=== PATIENT | female | born 1955 | race African-American/Black ===

== ENCOUNTER 2022-03-07 19:38 | Inpatient (IN) | payer MEDICARE, MEDICAID ==
[~2022-03-07 19:38] MED LIST: Iopamidol 370 76% 100 ML VIAL ONE; Iopamidol 370 76% 50 ML VIAL FS ONE
[2022-03-07 20:09] LABS: #Eosinphils 0.2 thou/uL (0.0-0.7); #Lymphocytes 3.1 thou/uL (1.20-3.40); #Monocytes 0.8 thou/uL (0.11-0.59); #Neutrophils 9.2 thou/uL (1.40-6.50); %Basophils 0.1 % (0.0-1.0); %Eosinophils 1.5 % (0.0-10.0); %Lymphocytes 23.1 % (21.0-51.0); %Monocytes 6.3 % (0.0-10.0); Mean Corpuscular HGB CONC 31.5 g/dL (32.0-36.0); Mean Corpuscular Hemoglobin 24.5 pg (27.0-31.0); Mean Platelet Volume 8.5 fL (7.4-10.4); Platelet Count 260 10x3/uL (130-400); RBC Distribution Width 16.3 % (11.5-14.5); Red Blood Cell (RBC) Count 4.89 mill/uL (4.20-5.40); White Blood Cell (WBC) Count 13.3 10x3/uL (4.8-10.8)
[2022-03-07 20:12] LABS: PTT 32.9 sec (22.9-36.1); Prothrombin Time 13.7 sec (12.0-14.7)
[2022-03-07 20:24] LABS: ALT (SGPT) 8 U/L (8-55); AST (SGOT) 25 U/L (5-34); Albumin 3.4 g/dL (3.4-4.8); Alkaline Phosphatase 110 U/L (40-110); Anion Gap 13 mmol/L (10-20); BUN (Urea Nitrogen) 12 mg/dL (9.8-20.1); Bilirubin, Total 0.3 mg/dL (0.2-1.2); Calc. Creatinine Clearance 0 mL/min (70-130); Calcium 8.9 mg/dL (7.8-10.44); Carbon Dioxide 28 mmol/L (23-31); Chloride 102 mmol/L (98-107); Estimated GFR 61; Globulin 3.2 g/dL (2.4-3.5); Glucose 287 mg/dL (80-115); Protein, Total 6.6 g/dL (5.8-8.1); Sodium 139 mmol/L (136-145)
[2022-03-07] MEDS ORDERED: Lidocaine 1% (PF) 30 ML VIAL ONE (20:28)
[2022-03-07] MEDS ORDERED: Clopidogrel Bisulfate 300 MG TAB ONE ×3 (20:39→20:41)
[2022-03-07 20:49] LABS: CKMB 42.5 ng/mL (0-6.6)
[2022-03-07] MEDS ORDERED: Heparin 10,000 UNITS/ 10 ML VIAL ONE ×2 (20:58)
[2022-03-07] MEDS ORDERED: Albuterol Sulfate HFA (OR ONLY) ONE (21:30)
[2022-03-07] MEDS ORDERED: Aggrastat 12.5 MG/250 ML 250 ML ONE (21:30)
[2022-03-07] MEDS ORDERED: Aggrastat 12.5 MG/250 ML 250 ML IVPB SCH ×2 (21:57→22:00)
[2022-03-07] MEDS ORDERED: Nitroglycerin 0.4 MG TAB (25 Tab Bottle) SL PRN (21:57)
[2022-03-07] MEDS ORDERED: Sodium Chloride 0.9% 1,000 ML IV SCH (21:57)
[2022-03-07] MEDS: Morphine 4 MG/ML VIAL SLOW IVP PRN (22:30)
[2022-03-07] MEDS ORDERED: Carvedilol 6.25 MG TAB PO SCH (22:30)
[2022-03-07 22:46] VITALS: BMI 44.7
[2022-03-08] MEDS: Nitroglycerin 50 MG/250 ML BOT 250 ML IVPB SCH ×2 (00:27→04:34)
[2022-03-08 01:43] LABS: Troponin I 40.655 ng/mL (< 0.028)
[2022-03-08] MEDS: Morphine 4 MG/ML VIAL SLOW IVP PRN ×2 (02:31→14:04)
[2022-03-08 03:54] LABS: ALT (SGPT) 9 U/L (8-55); AST (SGOT) 62 U/L (5-34); Albumin 2.9 g/dL (3.4-4.8); Alkaline Phosphatase 99 U/L (40-110); Anion Gap 11 mmol/L (10-20); BUN (Urea Nitrogen) 11 mg/dL (9.8-20.1); Bilirubin, Total 0.5 mg/dL (0.2-1.2); Calc. Creatinine Clearance 132 mL/min (70-130); Calcium 8.1 mg/dL (7.8-10.44); Carbon Dioxide 24 mmol/L (23-31); Chloride 106 mmol/L (98-107); Cholesterol 145 mg/dl (< 200 Desired); Estimated GFR 88; Globulin 2.6 g/dL (2.4-3.5); Glucose 253 mg/dL (80-115); HDL Cholesterol 29 mg/dL (>60 Neg Risk); LDL Cholesterol, Calculated 96 mg/dL; Potassium 3.6 mmol/L (3.5-5.1); Protein, Total 5.5 g/dL (5.8-8.1); Sodium 137 mmol/L (136-145); Triglycerides 101 mg/dL (Less than 150)
[2022-03-08] MEDS ORDERED: Dextrose 5% in Water 1,000 ML IV PRN (04:17)
[2022-03-08] MEDS ORDERED: HumaLOG 300 UNITS/3 ML VIAL SC PRN (04:17)
[2022-03-08] MEDS ORDERED: Dextrose 50% Abboject 50 ML SYRINGE SLOW IVP PRN (04:17)
[2022-03-08 06:23] LABS: #Eosinphils 0.2 thou/uL (0.0-0.7); #Lymphocytes 3.2 thou/uL (1.20-3.40); #Monocytes 0.9 thou/uL (0.11-0.59); #Neutrophils 7.4 thou/uL (1.40-6.50); %Basophils 0.4 % (0.0-1.0); %Eosinophils 1.7 % (0.0-10.0); %Lymphocytes 27.6 % (21.0-51.0); %Monocytes 7.4 % (0.0-10.0); %Neutrophils 62.9 % (42.0-75.0); Hemoglobin 10.2 g/dL (12.0-16.0); Mean Corpuscular HGB CONC 31.4 g/dL (32.0-36.0); Mean Corpuscular Hemoglobin 24.7 pg (27.0-31.0); Mean Corpuscular Volume 78.9 fl (78.0-98.0); Platelet Count 247 10x3/uL (130-400); RBC Distribution Width 16.4 % (11.5-14.5); Red Blood Cell (RBC) Count 4.11 mill/uL (4.20-5.40); White Blood Cell (WBC) Count 11.7 10x3/uL (4.8-10.8)
[2022-03-08] MEDS: Ondansetron PF 4 MG/2 ML Vial IVP PRN ×2 (06:50→14:03)
[2022-03-08 07:23] LABS: Critical Call Chem Troponin I RESULT DECREASING; Troponin I 33.246 ng/mL (< 0.028)
[2022-03-08] MEDS: Carvedilol 6.25 MG TAB PO SCH ×2 (08:15→16:35)
[2022-03-08] MEDS: Aspirin Chewable 81 MG TAB PO SCH (09:39)
[2022-03-08] MEDS: Clopidogrel Bisulfate 75 MG TAB PO SCH (09:39)
[2022-03-08] MEDS ORDERED: Amlodipine 5 MG TAB PO SCH (10:45)
[2022-03-08] MEDS: HumaLOG 300 UNITS/3 ML VIAL SC PRN ×2 (11:39→16:35)
[2022-03-08 12:20] LABS: Critical Call Chem Troponin I RESULT DECREASING; Troponin I 25.176 ng/mL (< 0.028)
[2022-03-08] MEDS: Gabapentin 300 MG CAP PO SCH ×2 (14:03→21:43)
[2022-03-08 14:24] LABS: Bilirubin Negative (Negative); Blood, Urine 3+ (Negative); Clarity Clear (Clear); Glucose, Urine (Dipstick) 100 mg/dL (Negative); Ketone, Urine Negative (Negative); Leukocyte Negative Leu/uL (Negative); Nitrite 2+ (Negative); Protein, Urine (Dipstick) 70 mg/dL (Neg-Trace); Urobilinogen Normal mg/dL (Less than 2)
[2022-03-08 14:27] LABS: Specific Gravity, Urine Greater than 1.060 (1.002-1.036)
[2022-03-08] MEDS ORDERED: Potassium Chloride 20 MEQ TAB PO SCH (17:00)
[2022-03-08] MEDS ORDERED: Furosemide 20 MG/2 ML VIAL SLOW IVP SCH (17:00)
[2022-03-08] MEDS: Insulin Glargine 30 UNITS/0.3 ML VIAL SC SCH (21:44)
[2022-03-08] MEDS: Atorvastatin Calcium 40 MG TAB PO SCH (21:44)
[2022-03-09] MEDS ORDERED: Phenazopyridine HCl 100 MG TAB PO SCH (04:00)
[2022-03-09 04:45] LABS: #Eosinphils 0.2 thou/uL (0.0-0.7); #Lymphocytes 3.3 thou/uL (1.20-3.40); #Monocytes 0.9 thou/uL (0.11-0.59); #Neutrophils 7.2 thou/uL (1.40-6.50); %Basophils 0.1 % (0.0-1.0); %Eosinophils 1.7 % (0.0-10.0); %Lymphocytes 28.3 % (21.0-51.0); %Monocytes 7.4 % (0.0-10.0); %Neutrophils 62.5 % (42.0-75.0); Hemoglobin 10.3 g/dL (12.0-16.0); Mean Corpuscular HGB CONC 31.7 g/dL (32.0-36.0); Mean Corpuscular Hemoglobin 24.8 pg (27.0-31.0); Mean Corpuscular Volume 78.3 fl (78.0-98.0); Mean Platelet Volume 8.4 fL (7.4-10.4); Platelet Count 238 10x3/uL (130-400); RBC Distribution Width 16.2 % (11.5-14.5); Red Blood Cell (RBC) Count 4.15 mill/uL (4.20-5.40); White Blood Cell (WBC) Count 11.5 10x3/uL (4.8-10.8)
[2022-03-09] MEDS: cefTRIAXone\\ROCEPHIN 1 GM in Sodium Chloride 0.9% 100 ML IVPB SCH (05:13)
[2022-03-09 05:15] LABS: Anion Gap 12 mmol/L (10-20); BUN (Urea Nitrogen) 10 mg/dL (9.8-20.1); Calc. Creatinine Clearance 123 mL/min (70-130); Calcium 8.5 mg/dL (7.8-10.44); Carbon Dioxide 25 mmol/L (23-31); Chloride 104 mmol/L (98-107); Estimated GFR 81; Glucose 211 mg/dL (80-115); Sodium 137 mmol/L (136-145)
[2022-03-09] MEDS: HumaLOG 300 UNITS/3 ML VIAL SC PRN ×3 (06:11→17:55)
[2022-03-09] MEDS ORDERED: Amlodipine 5 MG TAB PO SCH (09:00)
[2022-03-09] MEDS: Phenazopyridine HCl 100 MG TAB PO SCH ×3 (09:58→17:54)
[2022-03-09] MEDS: Insulin Glargine 30 UNITS/0.3 ML VIAL SC SCH ×2 (09:58→20:42)
[2022-03-09] MEDS: Aspirin Chewable 81 MG TAB PO SCH (09:58)
[2022-03-09] MEDS: Gabapentin 300 MG CAP PO SCH ×3 (09:59→20:41)
[2022-03-09] MEDS: Clopidogrel Bisulfate 75 MG TAB PO SCH (09:59)
[2022-03-09] MEDS: Carvedilol 6.25 MG TAB PO SCH ×2 (09:59→16:02)
[2022-03-09] MEDS ORDERED: Furosemide 20 MG TAB PO SCH (11:00)
[2022-03-09] MEDS ORDERED: Docusate 100 MG CAP PO PRN (20:39)
[2022-03-09] MEDS: Morphine 4 MG/ML VIAL SLOW IVP PRN (20:40)
[2022-03-09] MEDS: Atorvastatin Calcium 40 MG TAB PO SCH (20:41)
[2022-03-10 04:48] LABS: #Eosinphils 0.2 thou/uL (0.0-0.7); #Lymphocytes 2.7 thou/uL (1.20-3.40); #Monocytes 0.7 thou/uL (0.11-0.59); #Neutrophils 6.8 thou/uL (1.40-6.50); %Eosinophils 1.6 % (0.0-10.0); %Lymphocytes 26.2 % (21.0-51.0); %Monocytes 6.8 % (0.0-10.0); %Neutrophils 65.4 % (42.0-75.0); Hemoglobin 10.4 g/dL (12.0-16.0); Mean Corpuscular HGB CONC 31.2 g/dL (32.0-36.0); Mean Corpuscular Hemoglobin 24.6 pg (27.0-31.0); Mean Platelet Volume 8.8 fL (7.4-10.4); Platelet Count 225 10x3/uL (130-400); RBC Distribution Width 16.4 % (11.5-14.5); Red Blood Cell (RBC) Count 4.22 mill/uL (4.20-5.40); White Blood Cell (WBC) Count 10.3 10x3/uL (4.8-10.8)
[2022-03-10] MEDS: cefTRIAXone\\ROCEPHIN 1 GM in Sodium Chloride 0.9% 100 ML IVPB SCH (05:04)
[2022-03-10 05:07] LABS: Anion Gap 9 mmol/L (10-20); BUN (Urea Nitrogen) 10 mg/dL (9.8-20.1); Calc. Creatinine Clearance 120 mL/min (70-130); Calcium 8.5 mg/dL (7.8-10.44); Carbon Dioxide 26 mmol/L (23-31); Chloride 104 mmol/L (98-107); Estimated GFR 78; Glucose 164 mg/dL (80-115); Iron 21 ug/dL (50-170); Iron Binding Capacity, Total 226 mcg/dL (265-497); Potassium 3.7 mmol/L (3.5-5.1); Sodium 135 mmol/L (136-145)
[2022-03-10 05:17] LABS: Iron 23 ug/dL (50-170); Iron Binding Capacity, Total 215 mcg/dL (265-497)
[2022-03-10] MEDS: HumaLOG 300 UNITS/3 ML VIAL SC PRN ×3 (06:38→17:13)
[2022-03-10] MEDS: Carvedilol 6.25 MG TAB PO SCH ×2 (09:00→16:03)
[2022-03-10] MEDS ORDERED: FLU VACC QS2022-23(65YR UP)/PF 240 MCG/0.7 ML SYRINGE IM ONE (09:00)
[2022-03-10] MEDS: Gabapentin 300 MG CAP PO SCH ×3 (09:01→20:16)
[2022-03-10] MEDS: Enoxaparin Sodium 40 MG/0.4 ML SYRINGE SC SCH (09:02)
[2022-03-10] MEDS: Clopidogrel Bisulfate 75 MG TAB PO SCH (09:02)
[2022-03-10] MEDS: Aspirin 81 mg Enteric Coated Tablet PO SCH (09:02)
[2022-03-10] MEDS: Insulin Glargine 30 UNITS/0.3 ML VIAL SC SCH ×2 (09:03→20:17)
[2022-03-10] MEDS: Furosemide 20 MG TAB PO SCH (09:03)
[2022-03-10] MEDS: Phenazopyridine HCl 100 MG TAB PO SCH ×3 (09:03→17:09)
[2022-03-10] MEDS: Morphine 4 MG/ML VIAL SLOW IVP PRN (20:09)
[2022-03-10] MEDS: Atorvastatin Calcium 40 MG TAB PO SCH (20:16)
[2022-03-11 05:12] LABS: Anion Gap 12 mmol/L (10-20); BUN (Urea Nitrogen) 11 mg/dL (9.8-20.1); Calc. Creatinine Clearance 133 mL/min (70-130); Calcium 8.5 mg/dL (7.8-10.44); Carbon Dioxide 24 mmol/L (23-31); Chloride 104 mmol/L (98-107); Estimated GFR 90; Glucose 125 mg/dL (80-115); Potassium 3.8 mmol/L (3.5-5.1); Sodium 136 mmol/L (136-145)
[2022-03-11] MEDS: cefTRIAXone\\ROCEPHIN 1 GM in Sodium Chloride 0.9% 100 ML IVPB SCH (05:45)
[2022-03-11] MEDS: Phenazopyridine HCl 100 MG TAB PO SCH ×2 (09:21→13:37)
[2022-03-11] MEDS: Aspirin 81 mg Enteric Coated Tablet PO SCH (09:21)
[2022-03-11] MEDS: Enoxaparin Sodium 40 MG/0.4 ML SYRINGE SC SCH (09:21)
[2022-03-11] MEDS: Carvedilol 6.25 MG TAB PO SCH (09:21)
[2022-03-11] MEDS: Gabapentin 300 MG CAP PO SCH ×2 (09:21→15:14)
[2022-03-11] MEDS: Insulin Glargine 30 UNITS/0.3 ML VIAL SC SCH (09:21)
[2022-03-11] MEDS: Furosemide 20 MG TAB PO SCH (09:21)
[2022-03-11] MEDS: Clopidogrel Bisulfate 75 MG TAB PO SCH (09:22)
[2022-03-11 09:59] VITALS: TEMP 97.7
[2022-03-11] MEDS: HumaLOG 300 UNITS/3 ML VIAL SC PRN (13:35)
[2022-03-11 14:55] VITALS: BP 166/74
== END 2022-03-11 15:43 | disposition home or self-care (01) | DRG 247 ==
LOC: ERS 19:38 → CCL 20:22 → CCU 21:51 → 2NO 03-08 19:40
PROVIDERS: ADMIT Internal Medicine; ATTEND Internal Medicine Cardiovascular Disease
PROC: 027034Z Dilation of Coronary Artery, One Artery with Drug-eluting Intraluminal Device, Percutaneous Approach (ICD-10-PCS; principal; 2022-03-07)
PROC: 4A023N7 Measurement of Cardiac Sampling and Pressure, Left Heart, Percutaneous Approach (ICD-10-PCS; 2022-03-07)
PROC: B2111ZZ Fluoroscopy of Multiple Coronary Arteries using Low Osmolar Contrast (ICD-10-PCS; 2022-03-07)
PROC: B2151ZZ Fluoroscopy of Left Heart using Low Osmolar Contrast (ICD-10-PCS; 2022-03-07)
DX: I21.09 ST elevation (STEMI) myocardial infarction involving other coronary artery of anterior wall (principal); I69.351 Hemiplegia and hemiparesis following cerebral infarction affecting right dominant side; Z68.42 Body mass index [BMI] 45.0-49.9, adult; E78.00 Pure hypercholesterolemia, unspecified; E11.65 Type 2 diabetes mellitus with hyperglycemia; D53.9 Nutritional anemia, unspecified; E66.01 Morbid (severe) obesity due to excess calories; I35.1 Nonrheumatic aortic (valve) insufficiency; N18.2 Chronic kidney disease, stage 2 (mild); I25.5 Ischemic cardiomyopathy; F17.210 Nicotine dependence, cigarettes, uncomplicated; I12.9 Hypertensive chronic kidney disease with stage 1 through stage 4 chronic kidney disease, or unspecified chronic kidney disease; E11.22 Type 2 diabetes mellitus with diabetic chronic kidney disease; I25.2 Old myocardial infarction; Z88.1 Allergy status to other antibiotic agents; Z90.49 Acquired absence of other specified parts of digestive tract; Z88.2 Allergy status to sulfonamides; Z88.5 Allergy status to narcotic agent; Z86.718 Personal history of other venous thrombosis and embolism
CPT/HCPCS: 36415; 36416; 71045; 80048; 80053; 80061; 81003; 82553; 83540; 83550; 83880; 84484; 85025; 85347; 85610; 85730; 87077; 87086; 87186; 92920; 92941; 93005; 93010; 93306; 93458; 93798; 93976; C1725; C1769; C1874; C9606; J0696; J1644; J1650; J1815; J1940; J2001; J2270; J2405; J3246; J3490; J7050; Q9967

== ENCOUNTER 2022-07-11 20:05 | Inpatient (IN) | payer MEDICARE, MEDICAID ==
[2022-07-11] MEDS ORDERED: HumaLOG 300 UNITS/3 ML VIAL SC PRN ×2 (20:33)
[2022-07-11] MEDS ORDERED: Calcium Carbonate 500 MG ChewTAB PO PRN (20:33)
[2022-07-11] MEDS ORDERED: Dextrose 50% Abboject 50 ML SYRINGE SLOW IVP PRN (20:33)
[2022-07-11] MEDS ORDERED: Ondansetron ODT 4 MG TAB PO PRN (20:33)
[2022-07-11] MEDS ORDERED: Senokot S 8.6-50 MG TAB PO PRN (20:33)
[2022-07-11] MEDS ORDERED: Dextrose 5% in Water 1,000 ML IV PRN (20:33)
[2022-07-11 21:18] VITALS: BMI 46.5
[2022-07-11] MEDS: Atorvastatin Calcium 40 MG TAB PO SCH (21:39)
[2022-07-11] MEDS: Acetaminophen 325 MG TAB PO PRN (21:40)
[2022-07-11] MEDS ORDERED: Nitroglycerin 0.4 MG TAB (25 Tab Bottle) SL PRN (23:12)
[2022-07-12] MEDS: Acetaminophen/Codeine 30-300mg Tablet PO SCH ×4 (01:53→18:22)
[2022-07-12 04:53] LABS: Hemoglobin A1c 5.7 % (4.0-6.0)
[2022-07-12 05:04] LABS: #Eosinphils 0.3 thou/uL (0.0-0.7); #Lymphocytes 3.3 thou/uL (1.20-3.40); #Monocytes 0.7 thou/uL (0.11-0.59); #Neutrophils 5.7 thou/uL (1.40-6.50); %Basophils 0.4 % (0.0-1.0); %Eosinophils 3.5 % (0.0-10.0); %Monocytes 6.9 % (0.0-10.0); %Neutrophils 56.2 % (42.0-75.0); Hemoglobin 11.3 g/dL (12.0-16.0); Mean Corpuscular Hemoglobin 24.9 pg (27.0-31.0); Mean Corpuscular Volume 77.7 fl (78.0-98.0); Mean Platelet Volume 9.6 fL (7.4-10.4); Platelet Count 241 10x3/uL (130-400); Red Blood Cell (RBC) Count 4.56 mill/uL (4.20-5.40); White Blood Cell (WBC) Count 10.1 10x3/uL (4.8-10.8)
[2022-07-12 05:13] LABS: Anion Gap 13 mmol/L (10-20); BUN (Urea Nitrogen) 14 mg/dL (9.8-20.1); Calc. Creatinine Clearance 135 mL/min (70-130); Calcium 8.7 mg/dL (7.8-10.44); Carbon Dioxide 24 mmol/L (23-31); Cardiac Risk 3.6 (Less than 4.5); Chloride 107 mmol/L (98-107); Cholesterol 120 mg/dl (< 200 Desired); Estimated GFR 88; Glucose 73 mg/dL (80-115); HDL Cholesterol 33 mg/dL (>60 Neg Risk); LDL Cholesterol, Calculated 74 mg/dL; Potassium 3.8 mmol/L (3.5-5.1); Sodium 140 mmol/L (136-145); Triglycerides 67 mg/dL (Less than 150)
[2022-07-12] MEDS ORDERED: Lorazepam 0.5 MG TAB PO SCH (09:21)
[2022-07-12] MEDS ORDERED: Iopamidol 370 76% 100 ML VIAL ONE (10:10)
[2022-07-12] MEDS: Gabapentin 300 MG CAP PO SCH ×3 (10:18→22:09)
[2022-07-12] MEDS: Clopidogrel Bisulfate 75 MG TAB PO SCH (10:19)
[2022-07-12] MEDS: Aspirin 81 mg Enteric Coated Tablet PO SCH (10:19)
[2022-07-12] MEDS: Sacubitril 24MG/Valsartan 26 MG TAB PO SCH ×2 (10:19→22:10)
[2022-07-12] MEDS: Furosemide 20 MG TAB PO SCH (10:19)
[2022-07-12] MEDS: Carvedilol 6.25 MG TAB PO SCH ×2 (10:22→18:23)
[2022-07-12] MEDS ORDERED: Atorvastatin Calcium 40 MG TAB PO SCH (21:00)
[2022-07-12] MEDS ORDERED: INSULIN DETEMIR SC SCH (21:00)
[2022-07-12] MEDS: Atorvastatin Calcium 40 MG TAB PO SCH (22:10)
[2022-07-12] MEDS: Insulin Glargine 30 UNITS/0.3 ML VIAL SC SCH (22:10)
[2022-07-13] MEDS: Acetaminophen/Codeine 30-300mg Tablet PO SCH ×5 (00:03→23:43)
[2022-07-13 08:11] LABS: #Eosinphils 0.3 thou/uL (0.0-0.7); #Monocytes 0.8 thou/uL (0.11-0.59); #Neutrophils 5.8 thou/uL (1.40-6.50); %Basophils 0.2 % (0.0-1.0); %Eosinophils 3.4 % (0.0-10.0); %Lymphocytes 29.9 % (21.0-51.0); %Monocytes 8.4 % (0.0-10.0); %Neutrophils 58.1 % (42.0-75.0); Hemoglobin 11.5 g/dL (12.0-16.0); Mean Corpuscular HGB CONC 32.4 g/dL (32.0-36.0); Mean Corpuscular Hemoglobin 24.9 pg (27.0-31.0); Mean Platelet Volume 9.1 fL (7.4-10.4); Platelet Count 268 10x3/uL (130-400); Red Blood Cell (RBC) Count 4.62 mill/uL (4.20-5.40)
[2022-07-13 08:17] LABS: Anion Gap 13 mmol/L (10-20); BUN (Urea Nitrogen) 13 mg/dL (9.8-20.1); Calc. Creatinine Clearance 127 mL/min (70-130); Calcium 8.9 mg/dL (7.8-10.44); Carbon Dioxide 25 mmol/L (23-31); Chloride 103 mmol/L (98-107); Estimated GFR 81; Glucose 86 mg/dL (80-115); Sodium 137 mmol/L (136-145)
[2022-07-13] MEDS: Aspirin 81 mg Enteric Coated Tablet PO SCH (09:35)
[2022-07-13] MEDS: Furosemide 20 MG TAB PO SCH (09:35)
[2022-07-13] MEDS: Carvedilol 6.25 MG TAB PO SCH ×2 (09:35→16:53)
[2022-07-13] MEDS: Clopidogrel Bisulfate 75 MG TAB PO SCH (09:35)
[2022-07-13] MEDS: Gabapentin 300 MG CAP PO SCH ×3 (09:35→21:01)
[2022-07-13] MEDS: Sacubitril 24MG/Valsartan 26 MG TAB PO SCH ×2 (09:35→21:01)
[2022-07-13] MEDS: Insulin Glargine 30 UNITS/0.3 ML VIAL SC SCH ×2 (09:36→21:01)
[2022-07-13] MEDS ORDERED: Atorvastatin Calcium 40 MG TAB PO SCH (21:00)
[2022-07-13] MEDS: Acetaminophen 325 MG TAB PO PRN (21:07)
[2022-07-14] MEDS: Acetaminophen/Codeine 30-300mg Tablet PO SCH ×2 (06:28→11:35)
[2022-07-14] MEDS: Carvedilol 6.25 MG TAB PO SCH (08:28)
[2022-07-14] MEDS: Sacubitril 24MG/Valsartan 26 MG TAB PO SCH (08:28)
[2022-07-14] MEDS: Gabapentin 300 MG CAP PO SCH (08:29)
[2022-07-14] MEDS: Clopidogrel Bisulfate 75 MG TAB PO SCH (08:30)
[2022-07-14] MEDS: Furosemide 20 MG TAB PO SCH (08:30)
[2022-07-14] MEDS: Insulin Glargine 30 UNITS/0.3 ML VIAL SC SCH (08:32)
[2022-07-14] MEDS ORDERED: Aspirin 325 MG TAB PO SCH (09:00)
[2022-07-14 11:20] VITALS: BP 155/74; TEMP 98.1
== END 2022-07-14 13:30 | disposition home or self-care (01) | DRG 64 ==
LOC: INTOOBSV 20:13 → 2NO 20:13 → OBSVTOIN 07-12 09:18 → NEURO 07-13 14:37
PROVIDERS: ADMIT Family Medicine; ATTEND Family Medicine
DX: I63.531 Cerebral infarction due to unspecified occlusion or stenosis of right posterior cerebral artery (principal); G93.6 Cerebral edema; I13.0 Hypertensive heart and chronic kidney disease with heart failure and stage 1 through stage 4 chronic kidney disease, or unspecified chronic kidney disease; I69.351 Hemiplegia and hemiparesis following cerebral infarction affecting right dominant side; Z68.42 Body mass index [BMI] 45.0-49.9, adult; I50.32 Chronic diastolic (congestive) heart failure; Z51.5 Encounter for palliative care; R29.700 NIHSS score 0; E11.22 Type 2 diabetes mellitus with diabetic chronic kidney disease; E78.5 Hyperlipidemia, unspecified; N18.2 Chronic kidney disease, stage 2 (mild); E66.01 Morbid (severe) obesity due to excess calories; D63.1 Anemia in chronic kidney disease; Z88.1 Allergy status to other antibiotic agents; Z88.2 Allergy status to sulfonamides; Z79.4 Long term (current) use of insulin; Z79.82 Long term (current) use of aspirin; Z79.899 Other long term (current) drug therapy
CPT/HCPCS: 36415; 36416; 70496; 70498; 70551; 80048; 80061; 83036; 84443; 85025; 93306; J1650; J1815; Q9967

== ENCOUNTER 2022-07-23 16:32 | Inpatient (IN) | payer MEDICARE, MEDICAID ==
[2022-07-23 17:23] VITALS: BMI 45.0
[2022-07-23] MEDS ORDERED: Ondansetron ODT 4 MG TAB PO PRN (17:48)
[2022-07-23] MEDS ORDERED: Ondansetron PF 4 MG/2 ML Vial IVP PRN (17:48)
[2022-07-23] MEDS ORDERED: Dextrose 5% in Water 1,000 ML IV PRN (18:08)
[2022-07-23] MEDS ORDERED: Dextrose 50% Abboject 50 ML SYRINGE SLOW IVP PRN (18:08)
[2022-07-23] MEDS ORDERED: HumaLOG 300 UNITS/3 ML VIAL SC PRN ×2 (18:08)
[2022-07-23] MEDS ORDERED: Nitroglycerin 0.4 MG TAB (25 Tab Bottle) SL PRN (18:17)
[2022-07-23] MEDS ORDERED: Calcium Carbonate 500 MG ChewTAB PO PRN (18:17)
[2022-07-23] MEDS: Sacubitril 24MG/Valsartan 26 MG TAB PO SCH (20:44)
[2022-07-23] MEDS: Gabapentin 300 MG CAP PO SCH (20:44)
[2022-07-23] MEDS: Atorvastatin Calcium 40 MG TAB PO SCH (20:44)
[2022-07-23] MEDS: Nicotine 14 MG PATCH TD SCH (20:45)
[2022-07-24] MEDS ORDERED: Acetaminophen 500 MG TAB PO PRN (00:22)
[2022-07-24] MEDS ORDERED: Acetaminophen 650 MG Suppository PR PRN (00:22)
[2022-07-24] MEDS: Acetaminophen/Codeine 30-300mg Tablet PO SCH ×4 (00:52→17:55)
[2022-07-24] MEDS ORDERED: cefTRIAXone\\ROCEPHIN 1 GM in Sodium Chloride 0.9% 100 ML IVPB SCH (02:00)
[2022-07-24] MEDS ORDERED: diphenhydrAMINE 25 MG CAP PO SCH (03:45)
[2022-07-24 04:04] LABS: #Monocytes 0.9 thou/uL (0.11-0.59); #Neutrophils 9.3 thou/uL (1.40-6.50); %Basophils 0.3 % (0.0-1.0); %Lymphocytes 13.4 % (21.0-51.0); %Monocytes 7.7 % (0.0-10.0); %Neutrophils 78.2 % (42.0-75.0); Hemoglobin 10.8 g/dL (12.0-16.0); Mean Corpuscular HGB CONC 30.4 g/dL (32.0-36.0); Mean Corpuscular Volume 75.7 fl (78.0-98.0); Mean Platelet Volume 9.2 fL (7.4-10.4); Platelet Count 245 10x3/uL (130-400); RBC Distribution Width 19.2 % (11.5-14.5); Red Blood Cell (RBC) Count 4.69 mill/uL (4.20-5.40); White Blood Cell (WBC) Count 11.9 10x3/uL (4.8-10.8)
[2022-07-24 04:27] LABS: Anion Gap 12 mmol/L (10-20); BUN (Urea Nitrogen) 18 mg/dL (9.8-20.1); Calc. Creatinine Clearance 105 mL/min (70-130); Calcium 8.8 mg/dL (7.8-10.44); Carbon Dioxide 25 mmol/L (23-31); Cardiac Risk 3.7 (Less than 4.5); Chloride 101 mmol/L (98-107); Cholesterol 117 mg/dl (< 200 Desired); Estimated GFR 67; Glucose 83 mg/dL (80-115); HDL Cholesterol 32 mg/dL (>60 Neg Risk); LDL Cholesterol, Calculated 71 mg/dL; Potassium 3.6 mmol/L (3.5-5.1); Sodium 134 mmol/L (136-145); Triglycerides 72 mg/dL (Less than 150)
[2022-07-24] MEDS: cefTRIAXone\\ROCEPHIN 2 GM in Sodium Chloride 0.9% 100 ML IVPB SCH (05:27)
[2022-07-24] MEDS: Sacubitril 24MG/Valsartan 26 MG TAB PO SCH (08:51)
[2022-07-24] MEDS: Gabapentin 300 MG CAP PO SCH ×3 (08:52→20:53)
[2022-07-24] MEDS: Carvedilol 6.25 MG TAB PO SCH ×2 (08:52→17:55)
[2022-07-24] MEDS ORDERED: Furosemide 20 MG TAB PO SCH (09:00)
[2022-07-24] MEDS ORDERED: Aspirin 325 MG TAB PO SCH (09:00)
[2022-07-24] MEDS ORDERED: Aspirin 81 mg Enteric Coated Tablet PO SCH (09:00)
[2022-07-24] MEDS ORDERED: Clopidogrel Bisulfate 75 MG TAB PO SCH (09:00)
[2022-07-24] MEDS ORDERED: Lorazepam 0.5 MG TAB PO SCH (10:14)
[2022-07-24] MEDS: Nicotine 14 MG PATCH TD SCH (17:56)
[2022-07-24] MEDS: Atorvastatin Calcium 40 MG TAB PO SCH (20:53)
[2022-07-25] MEDS: Acetaminophen/Codeine 30-300mg Tablet PO SCH ×4 (00:27→17:55)
[2022-07-25] MEDS: cefTRIAXone\\ROCEPHIN 2 GM in Sodium Chloride 0.9% 100 ML IVPB SCH (02:45)
[2022-07-25 05:25] LABS: #Eosinphils 0.1 thou/uL (0.0-0.7); #Monocytes 1.2 thou/uL (0.11-0.59); #Neutrophils 6.5 thou/uL (1.40-6.50); %Basophils 0.2 % (0.0-1.0); %Eosinophils 0.5 % (0.0-10.0); %Lymphocytes 17.6 % (21.0-51.0); %Monocytes 12.7 % (0.0-10.0); %Neutrophils 68.5 % (42.0-75.0); Hemoglobin 10.5 g/dL (12.0-16.0); Mean Corpuscular HGB CONC 30.9 g/dL (32.0-36.0); Mean Corpuscular Hemoglobin 23.4 pg (27.0-31.0); Mean Corpuscular Volume 75.7 fl (78.0-98.0); Mean Platelet Volume 9.8 fL (7.4-10.4); Platelet Count 227 10x3/uL (130-400); RBC Distribution Width 18.9 % (11.5-14.5); Red Blood Cell (RBC) Count 4.49 mill/uL (4.20-5.40); White Blood Cell (WBC) Count 9.5 10x3/uL (4.8-10.8)
[2022-07-25 06:01] LABS: Anion Gap 13 mmol/L (10-20); BUN (Urea Nitrogen) 18 mg/dL (9.8-20.1); Calc. Creatinine Clearance 101 mL/min (70-130); Calcium 8.5 mg/dL (7.8-10.44); Carbon Dioxide 24 mmol/L (23-31); Chloride 101 mmol/L (98-107); Estimated GFR 64; Glucose 133 mg/dL (80-115); Potassium 3.8 mmol/L (3.5-5.1); Sodium 134 mmol/L (136-145)
[2022-07-25] MEDS ORDERED: cefTRIAXone\\ROCEPHIN 1 GM in Sodium Chloride 0.9% 100 ML IVPB SCH (09:00)
[2022-07-25] MEDS ORDERED: Ferrous Sulfate 325 MG TAB PO SCH (09:00)
[2022-07-25] MEDS: Gabapentin 300 MG CAP PO SCH ×3 (09:04→20:41)
[2022-07-25] MEDS: Polyethylene Glycol 3350 17 GM Packet PO SCH (09:05)
[2022-07-25] MEDS: Carvedilol 6.25 MG TAB PO SCH ×2 (09:05→17:56)
[2022-07-25] MEDS: Nicotine 14 MG PATCH TD SCH (17:57)
[2022-07-25] MEDS: Atorvastatin Calcium 40 MG TAB PO SCH (20:41)
[2022-07-26] MEDS: Acetaminophen/Codeine 30-300mg Tablet PO SCH ×3 (01:48→12:05)
[2022-07-26] MEDS ORDERED: cefTRIAXone\\ROCEPHIN 1 GM in Sodium Chloride 0.9% 100 ML IVPB SCH (02:00)
[2022-07-26] MEDS: Carvedilol 6.25 MG TAB PO SCH (08:58)
[2022-07-26] MEDS: Polyethylene Glycol 3350 17 GM Packet PO SCH (08:58)
[2022-07-26] MEDS: Gabapentin 300 MG CAP PO SCH ×2 (08:58→15:06)
[2022-07-26 11:36] VITALS: TEMP 97.3
[2022-07-26] MEDS ORDERED: Gentamicin 80 MG/2 ML VIAL IM SCH ×2 (12:00→14:00)
[2022-07-26 14:24] VITALS: BP 122/64
== END 2022-07-26 15:05 | disposition home or self-care (01) | DRG 65 ==
LOC: INTOOBSV 16:32 → NEURO 16:32 → OBSVTOIN 07-24 15:54
PROVIDERS: ADMIT Internal Medicine; ATTEND Internal Medicine
DX: I63.9 Cerebral infarction, unspecified (principal); I13.0 Hypertensive heart and chronic kidney disease with heart failure and stage 1 through stage 4 chronic kidney disease, or unspecified chronic kidney disease; I50.30 Unspecified diastolic (congestive) heart failure; N30.00 Acute cystitis without hematuria; Z68.42 Body mass index [BMI] 45.0-49.9, adult; E78.5 Hyperlipidemia, unspecified; I25.10 Atherosclerotic heart disease of native coronary artery without angina pectoris; F17.210 Nicotine dependence, cigarettes, uncomplicated; I08.3 Combined rheumatic disorders of mitral, aortic and tricuspid valves; E66.01 Morbid (severe) obesity due to excess calories; D63.1 Anemia in chronic kidney disease; E11.22 Type 2 diabetes mellitus with diabetic chronic kidney disease; N18.2 Chronic kidney disease, stage 2 (mild); K59.00 Constipation, unspecified; D50.9 Iron deficiency anemia, unspecified; Z88.1 Allergy status to other antibiotic agents; Z88.2 Allergy status to sulfonamides; Z79.4 Long term (current) use of insulin; Z95.5 Presence of coronary angioplasty implant and graft; Z98.890 Other specified postprocedural states; Z90.49 Acquired absence of other specified parts of digestive tract; Z86.718 Personal history of other venous thrombosis and embolism; Z85.3 Personal history of malignant neoplasm of breast; Z79.899 Other long term (current) drug therapy
CPT/HCPCS: 36415; 36416; 70551; 80048; 80061; 83605; 85025; 87040; 87077; 87086; 87186; 96374; G0378; J0696; J1580; J3490; J7070

== ENCOUNTER 2025-02-21 13:33 | Inpatient (IN) | payer MEDICARE, MEDICAID ==
[2025-02-21] MEDS ORDERED: hydrALAZINE 20 MG/ML VIAL SLOW IVP PRN (20:13)
[2025-02-21] MEDS ORDERED: Ondansetron PF 4 MG/2 ML Vial IVP PRN (20:13)
[2025-02-21] MEDS ORDERED: Dextrose 50% Abboject 50 ML SYRINGE SLOW IVP PRN (20:13)
[2025-02-21] MEDS ORDERED: Glucagon 1 MG/ML KIT IM PRN (20:13)
[2025-02-21 22:56] VITALS: BMI 45.7
[2025-02-22 04:54] LABS: #Basophils 0.03 10x3/uL (0.0-0.2); #Eosinophils 0.18 10x3/uL (0.0-0.7); #Monocytes 0.64 10x3/uL (0.11-0.59); #Neutrophils 7.35 10x3/uL (1.40-6.50); %Basophils 0.3 % (0.0-1.0); %Eosinophils 1.6 % (0.0-10.0); %Lymphocytes 25.5 % (21.0-51.0); %Monocytes 5.8 % (0.0-10.0); %Neutrophils 66.3 % (42.0-75.0); Hematocrit 33.2 % (36.0-47.0); Hemoglobin 10.1 g/dL (12.0-16.0); Mean Corpuscular Hemoglobin 23.7 pg (27.0-31.0); Mean Corpuscular Volume 77.8 fL (78.0-98.0); Platelet Count 300 10x3/uL (130-400); Red Blood Cell (RBC) Count 4.27 mill/uL (4.20-5.40); White Blood Cell (WBC) Count 11.08 10x3/uL (4.8-10.8)
[2025-02-22 05:43] LABS: Anion Gap 4 mmol/L (10-20); BUN (Urea Nitrogen) 8 mg/dL (9.8-20.1); Calc. Creatinine Clearance 137 mL/min (70-130); Calcium 8.4 mg/dL (7.8-10.44); Carbon Dioxide 26 mmol/L (23-31); Cardiac Risk 3.2 (Less than 4.5); Chloride 111 mmol/L (98-107); Cholesterol 109 mg/dl (< 200 Desired); Glucose 90 mg/dL (83-110); HDL Cholesterol 34 mg/dL (>60 Neg Risk); LDL Cholesterol, Calculated 61 mg/dL; Magnesium 2.0 mg/dL (1.6-2.6); Potassium 3.7 mmol/L (3.5-5.1); Sodium 137 mmol/L (136-145); Triglycerides 70 mg/dL (Less than 150)
[2025-02-22] MEDS: Acetaminophen 325 MG TAB PO PRN (08:31)
[2025-02-22] MEDS: Aspirin 81 mg Enteric Coated Tablet PO SCH (08:31)
[2025-02-23 04:29] LABS: #Basophils 0.03 10x3/uL (0.0-0.2); #Eosinophils 0.18 10x3/uL (0.0-0.7); #Monocytes 0.65 10x3/uL (0.11-0.59); #Neutrophils 5.39 10x3/uL (1.40-6.50); %Basophils 0.3 % (0.0-1.0); %Eosinophils 2.0 % (0.0-10.0); %Lymphocytes 29.0 % (21.0-51.0); %Monocytes 7.3 % (0.0-10.0); %Neutrophils 61.1 % (42.0-75.0); Hematocrit 36.2 % (36.0-47.0); Hemoglobin 10.6 g/dL (12.0-16.0); Mean Corpuscular Hemoglobin 24.2 pg (27.0-31.0); Mean Corpuscular Volume 82.6 fL (78.0-98.0); Platelet Count 266 10x3/uL (130-400); Red Blood Cell (RBC) Count 4.38 mill/uL (4.20-5.40); White Blood Cell (WBC) Count 8.85 10x3/uL (4.8-10.8)
[2025-02-23 04:40] LABS: Anion Gap 14 mmol/L (10-20); BUN (Urea Nitrogen) 9 mg/dL (9.8-20.1); Calc. Creatinine Clearance 154 mL/min (70-130); Calcium 8.4 mg/dL (7.8-10.44); Carbon Dioxide 23 mmol/L (23-31); Chloride 109 mmol/L (98-107); Glucose 81 mg/dL (83-110); Potassium 3.9 mmol/L (3.5-5.1); Sodium 142 mmol/L (136-145)
[2025-02-23] MEDS: Gabapentin 300 MG CAP PO SCH (20:55)
[2025-02-23] MEDS: Sacubitril 49 MG/Valsartan 51 MG TABLET PO SCH (20:55)
[2025-02-24] MEDS: Gabapentin 300 MG CAP PO SCH (08:44)
[2025-02-24] MEDS: Pantoprazole 40 MG DR.TAB PO SCH (08:44)
[2025-02-24] MEDS: DULoxetine 20 MG CAP PO SCH (08:45)
[2025-02-24] MEDS: Carvedilol 6.25 MG TAB PO SCH (08:45)
[2025-02-24] MEDS: Furosemide 20 MG TAB PO SCH (08:45)
[2025-02-24] MEDS ORDERED: Non-Formulary Item 1 EACH (Aspirin [Vazalore] 81 MG Capsule) PO SCH (09:00)
[2025-02-24 15:51] VITALS: TEMP 98.2
[2025-02-24 16:02] VITALS: BP 164/76
[2025-02-24] MEDS ORDERED: FLU (Fluad Triv) 25-26 (65UP)PF 45 MCG/0.5 ML Syringe IM ONE (20:00)
== END 2025-02-24 17:55 | disposition home or self-care (01) | DRG 149 ==
LOC: 2SE 18:05 → OBSVTOIN 02-23 15:58
PROVIDERS: ADMIT Internal Medicine; ATTEND Internal Medicine
DX: H81.10 Benign paroxysmal vertigo, unspecified ear (principal); I50.32 Chronic diastolic (congestive) heart failure; Z68.42 Body mass index [BMI] 45.0-49.9, adult; Z95.5 Presence of coronary angioplasty implant and graft; I25.10 Atherosclerotic heart disease of native coronary artery without angina pectoris; I11.0 Hypertensive heart disease with heart failure; I48.0 Paroxysmal atrial fibrillation; E78.5 Hyperlipidemia, unspecified; F17.210 Nicotine dependence, cigarettes, uncomplicated; E11.65 Type 2 diabetes mellitus with hyperglycemia; Z86.73 Personal history of transient ischemic attack (TIA), and cerebral infarction without residual deficits; Z88.1 Allergy status to other antibiotic agents; Z88.2 Allergy status to sulfonamides; Z90.49 Acquired absence of other specified parts of digestive tract; Z98.890 Other specified postprocedural states; Z79.4 Long term (current) use of insulin; Z79.82 Long term (current) use of aspirin; Z79.899 Other long term (current) drug therapy; E66.09 Other obesity due to excess calories
CPT/HCPCS: 36415; 36416; 70450; 72125; 80048; 80061; 83036; 83735; 84443; 85025; 93005; 93010; G0378